=== PATIENT | female | born 1945 | race Caucasian/White ===

== ENCOUNTER → 2016-06-30 | Outpatient (REF) | payer MEDICARE ==
[~2016-06-30] MED LIST: /PANT40TA OR; /SUCR1TA OR; /VERA40TA OR; ACET65TA OR; COUM2.5T11 PO; MAXA10TA14 PO; PERC5TAB6 PO; PRAV40TA OR; PROT1TAB2 PO; SENO8.6T2 PO; TYLE325T5 PO
== END ==
LOC: M LAB REF 13:22
PROVIDERS: ATTEND Nurse Practitioner Family
DX: B35.3 Tinea pedis (principal)

== ENCOUNTER → 2016-07-01 | Outpatient (REF) | payer MEDICARE ==
[2016-07-01 18:39] LABS: VITAMIN B12 LEVEL 235 PG/ML
[2016-07-01 18:40] LABS: FOLATE 6.5 NG/ML
== END ==
LOC: M LAB REF 16:41
PROVIDERS: ATTEND Internal Medicine
DX: Z01.89 Encounter for other specified special examinations (principal); G60.9 Hereditary and idiopathic neuropathy, unspecified

== ENCOUNTER → 2017-01-05 | Outpatient (CLI) | payer MEDICARE ==
[~2017-01-05] MED LIST changes: -COUM2.5T11 PO; +COUM2.5T17 PO; +PERC5TAB12 PO; -PERC5TAB6 PO; -SENO8.6T2 PO; +SENO8.6T5 PO
--- NOTE | 2017-01-05 15:08 | REPMRS ---
Patient History The patient states she has not had a clinical breast exam in over a year. Patient is postmenopausal. Family history of endometrial cancer in daughter. Digital Woman Screen Mammo: January 05, 2017 - Exam #: [id number] Bilateral CC and MLO view(s) were taken. Technologist: Joycelyn Grover, Technologist Prior study comparison: January 10, 2016, digital woman screen mammo performed at [facility]. January 09, 2015, digital woman screen mammo performed at [facility]. FINDINGS: There are scattered fibroglandular densities. There has been no change in the appearance of the mammogram from the prior studies. There is a mild amount of residual fibroglandular tissue which is fairly symmetric. There is no interval development of dominant mass, architectural distortion, or clustered microcalcification suggestive of malignancy. ASSESSMENT: BI-RADS/ACR category 1 mammogram. Negative. Recommendation Routine screening mammogram in 1 year (for women over age 40). This mammogram was interpreted with the aid of an FDA-approved computer-aided dectection system. Electronically Signed By: Loki Deutsch MD 01/05/17 [id number]
--- NOTE | 2017-01-07 09:38 | DEXA ---
AP SPINE L1 - L4 1.139 -0.4 1.2 LT FEMUR TOTAL Left hip replacement. RT FEMUR TOTAL 0.729 -2.2 -0.7 TOTAL BODY TOTAL OTHER DUAL FEMUR FRAX* ASSESSMENT Risk factors: Premature menopause. 10 year probability of fracture Major osteoporotic fracture 12.2 % Hip fracture 2.8 % COMMENTS: Normal bone densitometry of the spine. There is low bone density of the right hip. The increased density of the spine does not represent a significant change. The decreased density of the right hip does represent a significant change. The density of the spine is increased 1.9% since the initial exam on 10/20/2006. The spine density has increased 1.1% since the most recent exam on 01/09/2015. Hip replacement. The density of the right hip has decreased 9.4% since the initial exam on 2006. The density of the right hip has decreased 3.7% since the most recent exam on . FOLLOW-UP: Recommendation for the next bone density exam: 2 years. MAIRA
== END ==
LOC: M WHC 14:00
PROVIDERS: ATTEND Internal Medicine
DX: M81.0 Age-related osteoporosis without current pathological fracture (principal); M85.80 Other specified disorders of bone density and structure, unspecified site; Z12.31 Encounter for screening mammogram for malignant neoplasm of breast
CPT/HCPCS: 77080; G0202

== ENCOUNTER → 2017-07-07 | Outpatient (REF) | payer MEDICARE ==
[2017-07-07 20:49] LABS: FOLATE 7.8 NG/ML; VITAMIN B12 LEVEL 250 PG/ML
== END ==
LOC: M LAB REF 17:50
DX: G60.9 Hereditary and idiopathic neuropathy, unspecified (principal)
CPT/HCPCS: 82746

== ENCOUNTER → 2018-01-05 | Outpatient (CLI) | payer MEDICARE | LOC: M WHC 14:23 | DX: Z12.31 Encounter for screening mammogram for malignant neoplasm of breast (principal) | CPT/HCPCS: 77067 ==

== ENCOUNTER → 2019-02-24 | Outpatient (CLI) | payer MEDICARE ==
[~2019-02-24] MED LIST changes: -/PANT40TA OR; -/SUCR1TA OR; -/VERA40TA OR; +PROT1TAB2 OR; +SUCR1TAB56 OR; +VERA1TAB23 OR
--- NOTE | 2019-02-24 14:12 | REPMRS ---
Patient History The patient states she has not had a clinical breast exam in over a year. Patient is postmenopausal and has history of squamous cell skin cancer at age 60. Family history of endometrial cancer in daughter. No Hormone Replacement Therapy 3D TOMOSYNTHESIS WAS PERFORMED. [facility] lifetime risk for breast cancer is 2.5%. Digital Woman Screen Mammo: February 24, 2019 - Exam #: [id number] Bilateral CC and MLO view(s) were taken. Technologist: Joycelyn Grover, Technologist Prior study comparison: January 05, 2018, bilateral digital woman screen mammo performed at [facility]. January 05, 2017, digital woman screen mammo performed at [facility]. FINDINGS: The breast tissue is heterogeneously dense. This may lower the sensitivity of mammography. There has been no change in the appearance of the mammogram from the prior studies. There is a moderate amount of residual fibroglandular tissue which is fairly symmetric. There is no interval development of dominant mass, areas of architectural distortion, or clustered microcalcification typical of malignancy. Assessment: BI-RADS/ACR category 1 mammogram. Negative Mammogram. Recommendation Routine screening mammogram in 1 year (for women over age 40). This mammogram was interpreted with the aid of an FDA-approved computer-aided dectection system. Electronically Signed By: Loki Deutsch MD 02/24/19 [id number]
--- NOTE | 2019-02-28 14:24 | DEXA ---
AP SPINE L1 - L4 1.140 -0.4 1.3 LT FEMUR TOTAL Left hip replacement. LT NECK Left hip replacement. RT FEMUR TOTAL 0.751 -2.0 -0.4 RT NECK 0.715 -2.3 -0.5 TOTAL BODY TOTAL OTHER COMMENTS: Normal bone densitometry of the spine. There is low bone density of the right hip. The increased density of the spine does not represent a significant change. The increased density of the right hip does represent a significant change. The density of the spine has increased 2.0% since the initial exam on 10/20/2006. The spine density has increased 0.1% since the most recent exam on 01/05/2017. Left hip replacement. The density of the right hip has decreased 6.7% since the initial exam on 10/20/2006. The density of the right hip has increased 3.0% since most recent exam on 01/05/2017. FOLLOW-UP: Recommendation for the next bone density exam: 2 years. MAIRA
== END ==
LOC: M WHC 12:59
PROVIDERS: ATTEND Internal Medicine
DX: Z12.31 Encounter for screening mammogram for malignant neoplasm of breast (principal); M81.0 Age-related osteoporosis without current pathological fracture; Z80.49 Family history of malignant neoplasm of other genital organs; Z85.828 Personal history of other malignant neoplasm of skin; M85.851 Other specified disorders of bone density and structure, right thigh; Z96.642 Presence of left artificial hip joint

== ENCOUNTER → 2019-03-17 | Outpatient (CLI) | payer MEDICARE ==
[~2019-03-17] MED LIST changes: +CONRAY-43 43% 50ML VIAL (Q9960) As Ordered ONE; +LIDOCAINE 1% MDV 20ML VIAL As Ordered ONE; +methylPREDNISolone 80MG/ML SUSP 1ML VIAL (J1040) As Ordered ONE
--- NOTE | 2019-03-20 14:54 | REP ---
RIGHT HIP INJECTION The procedure was performed under the direct supervision of Dr. Deutsch. The benefits and risks including but not limited to pain infection bleeding and anaphylaxis were explained to the patient and informed consent was obtained. The right femoral neck was localized using fluoroscopic guidance. The skin was prepped and draped in a sterile fashion. 1% lidocaine was used as a local anesthetic. Using fluoroscopic guidance a 22-gauge spinal needle was inserted and advanced to the femoral neck. 0.5 ml of Conray 43 was injected to verify placement. 5 ml of a solution containing 4 ml of 1% lidocaine and 1 ml of Depo-Medrol 40 mg injected. The needle was then removed. The patient tolerated the procedure well and there were no immediate complications. Less than 6 seconds of fluoroscopy time was utilized for this procedure. Electronically Signed by EMANUEL Villavicencio 03/17/2019 03:38 P Electronically Signed by Loki Deutsch MD 03/20/2019 02:45 P
== END ==
LOC: M RADPRO 11:59
PROVIDERS: ATTEND Physician Assistant Surgical
DX: M25.551 Pain in right hip (principal)
CPT/HCPCS: 20610; 77002; J1040; Q9960

== ENCOUNTER → 2021-02-19 | Outpatient (CLI) | payer MEDICARE ==
[~2021-02-19] MED LIST changes: -CONRAY-43 43% 50ML VIAL (Q9960) As Ordered ONE; -LIDOCAINE 1% MDV 20ML VIAL As Ordered ONE; -methylPREDNISolone 80MG/ML SUSP 1ML VIAL (J1040) As Ordered ONE
--- NOTE | 2021-02-20 07:31 | REPMRS ---
Patient History The patient states she has not had a clinical breast exam in over a year. Family history of endometrial cancer in daughter. No Hormone Replacement Therapy Modern vaccine 07/25/20 left arm. 08/22/20 left arm. Patient states no breast complaints today. Patient has signed MRS History Sheet. Digital Woman Screen Mammo: February 19, 2021 - Exam #: [id number] Bilateral CC and MLO view(s) were taken. Technologist: RT Arun Prior study comparison: February 24, 2019, bilateral digital woman screen mammo performed at [facility]. January 05, 2018, bilateral digital woman screen mammo performed at [facility]. FINDINGS: There are scattered fibroglandular densities. Screening. Digital screening (2D) mammography was performed bilaterally in the CC and MLO projections. Additionally, breast tomosynthesis (3D mammography) was performed bilaterally in the CC and MLO projections. Todays exam was compared to the prior exam/exams. By history, the patient has no complaints of a palpable breast abnormality or other significant breast complaints. The breasts are unchanged in size and shape. There are no candice-soft tissue densities or spiculated masses. There is no internal architectural distortion. Once again, stable benign appearing calcifications are seen.There are no suspicious candice-calcific clusters. Skin thickening or nipple retraction is not present. IMPRESSION: BI-RADS Category 2- Benign Findings. There is no evidence of malignant alteration of the breasts. Followup examination recommended in one year. The Volpara volumetric breast density category is B, there are scattered areas of fibroglandular densities. This mammogram was read with the assistance of [facility] Compass,an FDA approved computer aided detection system for mammography. The lifetime Tyrer-Cuzick score is 2.1 % Negative x-ray reports should not delay surgical consultation if a dominant or clinically suspicious mass is present. Not all breast cancers can be identified by mammography. Therefore, we recommend that you continue to perform regular breast self-examination and physical examination and then promptly contact your physician of any concerns or changes. Adenosis and dense breasts may obscure an underlying neoplasm. Assessment: BI-RADS/ACR category 2 mammogram. Benign Findings. Recommendation Routine screening mammogram of both breasts in 1 year. Electronically Signed By: Caleb Ochoa DO 02/19/21 [id number]
== END ==
LOC: M WHC 15:20
PROVIDERS: ATTEND Internal Medicine
DX: Z12.31 Encounter for screening mammogram for malignant neoplasm of breast (principal)

== ENCOUNTER → 2021-04-09 | Outpatient (CLI) | payer MEDICARE ==
[~2021-04-09] MED LIST changes: +FAMC250T; +LEVO25TA5; +PRAV40TA2; +VERA40TA; +ZOLP5TAB
== END ==
LOC: M LABSMTC 09:16
PROVIDERS: ATTEND Anesthesiology
DX: Z01.812 Encounter for preprocedural laboratory examination (principal); Z20.822 Contact with and (suspected) exposure to COVID-19

== ENCOUNTER 2021-04-14 06:47 | Day surgery (SDC) | payer MEDICARE ==
[~2021-04-14] VITALS: Ht 165.1 cm; Wt 60.3 kg
[~2021-04-14 06:47] MED LIST changes: +NS 1,000 ML IV ONE
--- OUTSIDE RECORDS SUMMARY | 2021-04-14 06:51 | CCD | Continuity of Care Document ---
Author Author Susannah GRIMES Organization Unknown Address [address] [place] [address] Phone [phone] Care Team Providers Care Processing Technologist Name Role Phone Joshua Finley M.D. AUTM [phone] Problems Description No Information Available Social History Type Date Description Comments Sex Unknown Tobacco Use Start: Unknown End: Unknown Former Cigarette Smo ker Quit 1988 ETOH Use Social Drinker Tobacco Use Start: Unknown End: Unknown Patient is a former smoker quit smoking in 1988 Sun Exposure moderate amount of sun exposure Sun Exposure Has experienced blistering from sunburns Sun Exposure Uses 15-30 SPF Sun Exposure Has never used tanning bed Allergies, Adverse Reactions, Alerts Active Allergies Reaction Severity Comments Date Topamax 06/27/2015 Medications Active Medications SIG Qnty Indications Ordering Provide r Date Cephalexin 500mg Capsules 1 by mouth twice a day x 7 days 14caps L08.9 ANGELIA Ferrer 2020 Urea 40% Cream a pply to the feet every day 198gm L85.3 ANGELIA Dawn 06/14 Pravastatin Sodium Unknown Verapamil HCL Unknown Maxalt Unknown Omeprazole Unknown Calcium 600 + D Unknown 0 Vitamin D3 Unknown Levothyroxine Sodium Unknown Famciclovir Unknown Immunizations Description No Information Available Vital Signs Date Vital Result Comment 01/21/2021 3:07pm BP Systolic 126 mmHg BP Diastolic 72 mmHg Weight 131.00 lb Height 65 inches 5'5" BMI (Body Mass Index) 21.8 kg/m2 12/17/2020 10:18am BP Systolic 118 mmHg BP Diastolic 66 mmHg Weight 135.00 lb Respiratory Rate 18 /min Results Test Acquired Date Facility Test Result H/L Range Note Laboratory test finding 01/21/2021 [facility] Anaerobic Culture <pending> [facility] 12/17/2020 [facility] LC Icd9 Code ICD9 Code: C44.7 <SEE NOTE> 1, 2 PDFReport SEE IMAGE [address] Gonzalez for exc ision/Mohs letter awaiting signature LW 01/23/21 2 ICD9 Code: C44.722 Protocol: shave Clinical Text: SCC VS KA Final Diagnosis: KERATOACANTHOMA (SQUAMOUS CELL CARCINOMA, KERATOACANTHOMA TYPE), EXTENDING TO THE BOTTOM OF THE SECTIONS. Gross Text: The specimen grossly was irregular in shape and measured 12 x 10 mm. on the surface and 3 mm. deep. It was divided into 2 sections on the long axis. All of the tissue was submitted for processing. Microscopic Description: Markedly thickened horn invaginates the epithelium, which is papillomatous and acanthotic, with a number of pale-staining cells and disruption of maturation, and the lesion extends to the bottom of the sections. CPT: 13116*1 Procedures Date Code Description Status 01/21/2021 22624 Office/Outpatient Established Mo d MDM 30-39 Min Completed 12/17/2020 95874 Office/Outpatient Established Mo d MDM 30-39 Min Completed 12/17/2020 80053 Shave Biopsy Of Skin, Single Les ion Completed Medical Devices Description No Information Available Encounters Type Date Location Provider Dx Diagnosis Office Visit 01/21/2021 2:45p Main Office ANGELIA Ferrer C44.722 Squamous cell carcinoma skin/ right lower limb, inc hip L08.9 Local infection of the skin and subcutaneous tissue, unsp Office Visit 12/17/2020 10:30a Main Office MACHO Whitten D48. 5 Neoplasm of uncertain behavior of skin L82.1 Other seborrheic keratosis D18.01 Hemangioma of skin and subcu taneous tissue Z85.828 Personal history of other ma lignant neoplasm of skin Z08 Encntr for follow-up exam af ter trtmt for malignant neoplasm Assessments Date Code Description Provider 01/21/2021 C44.722 Squamous cell carcin nelly of skin of right lower limb, including hip ANGELIA Ferrer 01/21/2021 L08.9 Local infection of t he skin and subcutaneous tissue, unspecified ANGELIA Ferrer 12/17/2020 D48.5 Neoplasm of uncertain behavior o f skin MACHO Whitten 12/17/2020 L82.1 Other seborrheic keratosis MACHO Whitten 12/17/2020 D18.01 Hemangioma of skin and subcutane ous tissue MACHO Whitten 12/17/2020 Z85.828 Personal history of other malign ant neoplasm of skin MACHO Whitten 12/17/2020 Z08 Encounter for follow-up examinat ion after completed treatmen MACHO Whitten Plan of Treatment Future Appointment(s):* 07/07/2021 12:30 pm - ANGELIA Schaefer at Main Office * 12/17/2021 9:45 am - ANGELIA Schaefer at Main Office 01/21/2021 - ANGELIA Ferrer* C44.722 Squamous cell carcinoma of skin of right lower limb, including hip* Comments:* Discussed treatment.Start Cephalexin 500 mg BID x 7 days.Start Mupirocin cream ( that already has at home) BID x 7 days.Culture taken today.Will call when results are back.Call with problems. * L08.9 Local infection of the skin and subcutaneous tissue, unspecified* New Medication:* Cephalexin 500 mg - 1 by mouth twice a day x 7 days * Comments:* See above. * Follow up:* 6 month - [facility] Functional Status Description No Information Available Mental Status Description No Information Available Referrals Description No Information Available
--- OUTSIDE RECORDS SUMMARY | 2021-04-14 06:51 | CCD ---
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 Ac tive confirmed 215439665 Problem Squamous cell carcinoma of skin of right lower l imb, including hip C44.722 Active confirmed [id number] ALLERGIES Allergen (clinical drug ingredient) Drug/Non Drug Allergy do cumented on EMR Reaction Allergy Type Onset Date Status Topamax 100 rash,h/a Drug Allergy Active ENCOUNTERS from 1945 to 2021-04-09 Encounter Location Date Provider Diagnosis [facility] Dermatology [address] [facility] [phone] [place] [address] Mar, Tong Gonzalez Squamous cell carcinoma of r ight lower leg C44.722 IMMUNIZATIONS No Information SOCIAL HISTORY Tobacco Use: Social History Observation Description Date Details (start date - stop date) Never Smoker Sex Assigned At : Social History Observation Description Sex Assigned At Unknown Tobacco Use: Question Answer Notes Are you a: never smoker REASON FOR REFERRAL No Information VITAL SIGNS Weight 133.6 lbs Mar, Weight-kg 60.6 kg Mar, Height 64 1/2 in Mar, BMI 22.58 kg/m2 Mar, Blood pressure systolic 130 mm Hg Mar, Blood pressure diastolic 70 mm Hg Mar, MEDICATIONS Medication SIG (Take, Route, Frequency, Duration) Notes Start Da te End Date Status Maxalt 10 MG 1 Orally prn h/a Active Calcium 600 + D 600-400 MG-UNIT 1 tablet Orally Once a day for 30 day (s) Active Flax Seed Oil 1000 MG 1 Orally daily Not-Taking Pantoprazole Sodium 40 MG 1 Orally daily Active Famciclovir 250 MG 1 tablet Orally Twice a day for 10 day(s) Active Fish Oil 1000 MG 1 Orally daily Not- Taking Verapamil HCl 40 mg 1 tablet Orally daily for 30 day(s) Active Multivitamins 1 Orally daily Active Levothyroxine Sodium 25 MCG 1 tablet in the morning on an empty stomach Orally Once a day for 30 day(s) Active Pravachol 40 40mg 1 daily Active PROCEDURES from 1945 to 2021-04-09 Procedure Date Ordered Result Body Site Med: Derm Lidocaine with Epinephrine Inj ection 1% with 2 ml sodium bicarbonate Intradermally to marked areas 2021-04-04 N/A RESULTS No Results REASON FOR VISIT SCC, R posterior leg MEDICAL (GENERAL) HISTORY Type Description Date Medical History hyperlipidemia Medical History migraine headache Medical History irregular heart beat/mitral valve prolap se Medical History hemorrhoids Medical History fracture---right foot/heel and 2 toes Medical History insomnia Medical History osteopenia Medical History peptic ulcer 05/23 Medical History neuroma of foot-sheyla. Medical History constipation,2011-seeing sabra tyler and has a referral for colonoscopy pending Medical History HSV buttock Surgical History chin lift 1998 Surgical History colonoscopy 2003, pending 04/25 Surgical History endoscopy x 2 2009 Goals Section No Information Health Concerns No Information MEDICAL EQUIPMENT No Information MENTAL STATUS No Information FUNCTIONAL STATUS No Information ASSESSMENTS Encounter Date Diagnosis Assessment Notes Treatment Notes Treatm ent Clinical Notes Mar, Squamous cell carcinoma of right lower leg (ICD- 10 - C44.722) [place] protocol was followed in compliance with [facility] standards. Mohs Micrographic Surgeon operated in two distinct and integrated capacities as the surgeon and the pathologist. The areas was prepped with chlorhexidine. The tumor was visualized, compared against relevant records, and confirmed with the patient. The agreed upon area anesthetized with lidocaine 1% with epinephrine. Once anesthetized, the area was lightly curetted with a 3mm curette to better define tumor size. A 2mm rim of normal tissue was marked and an incision at a 45 degree angle following standard Mohs approach was performed and the specimen harvested as a microscopic controlled layer. Hemostasis was achieved with electrocautery. Estimated blood loss was 5mL.The specimen was oriented, chromacoded, mapped, and placed in 1 block. Each section was processed in the Mohs Laboratory using Mohs protocol and submitted for frozen section. Please see scanned Mohs map for appropriate use criteria score greater than or equal to 7 and pathology report. Frozen section analysis of the four quadrants showed the followin quadrants, 0 positive. Procedure: Secondary Intent Healing Petrolatum and bandage applied. Wound care instruction addressed with patient by provider or clinic staff and wound care handout given. Given the location of the defect and/or patient preference, the wound was allowed to heal by secondary intent. Plan for recheck of the surgical site in 4 weeks and 10 weeks. Patient tolerated the procedure well and left in stable condition. Patient reports that his/her pain was well-managed. There was no noted significant difference from baseline pain score after procedure. Patient was educated to use acetaminophen 500mg up to 4 times daily. If not sufficient, patient was educated to re-present to the dermatology clinic or, if after hours, the emergency department. PLAN OF TREATMENT Treatment Notes Assessment Notes Clinical Notes Squamous cell carcinoma of right lower leg [place] protocol was followed in compliance with [facility] standards. Mohs Micrographic Surgeon operated in two distinct and integrated capacities as the surgeon and the pathologist. The areas was prepped with chlorhexidine. The tumor was visualized, compared against relevant records, and confirmed with the patient. The agreed upon area anesthetized with lidocaine 1% with epinephrine. Once anesthetized, the area was lightly curetted with a 3mm curette to better define tumor size. A 2mm rim of normal tissue was marked and an incision at a 45 degree angle following standard Mohs approach was performed and the specimen harvested as a microscopic controlled layer. Hemostasis was achieved with electrocautery. Estimated blood loss was 5mL.The specimen was oriented, chromacoded, mapped, and placed in 1 block. Each section was processed in the Mohs Laboratory using Mohs protocol and submitted for frozen section. Please see scanned Mohs map for appropriate use criteria score greater than or equal to 7 and pathology report. Frozen section analysis of the four quadrants showed the followin quadrants, 0 positive.Procedure: Secondary Intent HealingPetrolatum and bandage applied. Wound care instruction addressed with patient by provider or clinic staff and wound care handout given. Given the location of the defect and/or patient preference, the wound was allowed to heal by secondary intent. Plan for recheck of the surgical site in 4 weeks and 10 weeks.Patient tolerated the procedure well and left in stable condition. Patient reports that his/her pain was well- managed. There was no noted significant difference from baseline pain score after procedure. Patient was educated to useacetaminophen 500mg up to 4 times daily. If not sufficient, patient was educated to re-present to the dermatology clinic or, if after hours, theemergency department. Next Appt Details 6 Weeks Reason: Provider Name:Tong Gonzalez, 05-29 11:00:00 AM, [address] [place] [address], [place], [place], [facility] [phone] Insurance Providers Payer Name Payer Address Payer Phone Insured Name Patient Relati onship to Insured Coverage Start Date Coverage End Date MEDICARE Part A and B [address] [facility] [id number] [employer] [facility] OPTIONS [facility] [address] [facility] [phone] CHAD [place]ENO
--- OUTSIDE RECORDS SUMMARY | 2021-04-14 06:51 | CCD ---
Author Author [facility] Organization [facility] Address Unknown Phone Unavailable Care Team Providers Care Used Car Manager Name Role Phone Chace Marin MD Unavailable Unavailable Chace Marin MD Unavailable Unavailable Chace Marin MD Unavailable Unavailable Chace Marin MD Unavailable Unavailable Chace Marin MD Unavailable Unavailable Chace Marin MD Unavailable Unavailable Chace Marin MD Unavailable Unavailable Chace Marin MD Unavailable Unavailable Chace Marin MD Unavailable Unavailable Chace Marin MD Unavailable Unavailable Chace Marin MD Unavailable Unavailable Chace Marin MD Unavailable Unavailable Chace Marin MD Unavailable Unavailable Chace Marin MD Unavailable Unavailable Chace Marin MD Unavailable Unavailable Chace Marin MD Unavailable Unavailable Chace Marin MD Unavailable Unavailable Chace Marin MD Unavailable Unavailable Chace Marin MD Unavailable Unavailable Chace Marin MD Unavailable Unavailable Chace Marin MD Unavailable Unavailable Chace Marin MD Unavailable Unavailable Chace Marin MD Unavailable Unavailable Chace Marin MD Unavailable Unavailable Chace Marin MD Unavailable Unavailable Chace Marin MD Unavailable Unavailable Chace Marin MD Unavailable Unavailable Chace Marin MD Unavailable Unavailable Chace Marin MD Unavailable Unavailable Chace Marin MD Unavailable Unavailable Chace Marin MD Unavailable Unavailable Chace Marin MD Unavailable Unavailable Chace Marin MD Unavailable Unavailable Chace Marin MD Unavailable Unavailable Chace Marin MD Unavailable Unavailable Chace Marin MD Unavailable Unavailable Chace Marin MD Unavailable Unavailable Chace Marin MD Unavailable Unavailable Chace Marin MD Unavailable Unavailable Chace Mairn MD Unavailable Unavailable Chace Marin MD Unavailable Unavailable Chace Marin MD Unavailable Unavailable Chace Marin MD Unavailable Unavailable Chace Marin MD Unavailable Unavailable Chace Marin MD Unavailable Unavailable Chace Marin MD Unavailable Unavailable Chace Marin MD Unavailable Unavailable Chace Marin MD Unavailable Unavailable Chace Marin MD Unavailable Unavailable Chace Marin MD Unavailable Unavailable PICKERAL JR, J ELIO PA-C Unavailable Unavailable PICKERAL JR, J ELIO PA-C Unavailable Unavailable PICKERAL JR, J ELIO PA-C Unavailable Unavailable PICKERAL JR, J ELIO PA-C Unavailable Unavailable PICKERAL JR, J ELIO PA-C Unavailable Unavailable PICKERAL JR, J ELIO PA-C Unavailable Unavailable PICKERAL JR, J ELIO PA-C Unavailable Unavailable PICKERAL JR, J ELIO PA-C Unavailable Unavailable PICKERAL JR, J ELIO PA-C Unavailable Unavailable PICKERAL JR, J ELIO PA-C Unavailable Unavailable PICKERAL JR, J ELIO PA-C Unavailable Unavailable PICKERAL JR, J ELIO PA-C Unavailable Unavailable PICKERAL JR, J ELIO PA-C Unavailable Unavailable PICKERAL JR, J ELIO PA-C Unavailable Unavailable PICKERAL JR, J ELIO PA-C Unavailable Unavailable PICKERAL JR, J ELIO PA-C Unavailable Unavailable PICKERAL JR, J ELIO PA-C Unavailable Unavailable PICKERAL JR, J ELIO PA-C Unavailable Unavailable PICKERAL JR, J ELIO PA-C Unavailable Unavailable PICKERAL JR, J ELIO PA-C Unavailable Unavailable PICKERAL JR, J ELIO PA-C Unavailable Unavailable PICKERAL JR, J ELIO PA-C Unavailable Unavailable PICKERAL JR, J ELIO PA-C Unavailable Unavailable PICKERAL JR, J ELIO PA-C Unavailable Unavailable PICKERAL JR, J ELIO PA-C Unavailable Unavailable PICKERAL JR, J ELIO PA-C Unavailable Unavailable PICKERAL JR, J ELIO PA-C Unavailable Unavailable Max Finley MD Unavailable Unavailable Max Finley MD Unavailable Unavailable Max Finley MD Unavailable Unavailable Max Finley MD Unavailable Unavailable Max Finley MD Unavailable Unavailable Max Finley MD Unavailable Unavailable Max Finley MD Unavailable Unavailable Max Finley MD Unavailable Unavailable Max Finley MD Unavailable Unavailable Max Finley MD Unavailable Unavailable TusharMax MD Unavailable Unavailable HugginsMax MD Unavailable Unavailable HugginsMax MD Unavailable Unavailable TusharMax MD Unavailable Unavailable TusharMax MD Unavailable Unavailable HugginsMax MD Unavailable Unavailable TusharMax MD Unavailable Unavailable TusharMax MD Unavailable Unavailable HugginsMax MD Unavailable Unavailable TusharMax MD Unavailable Unavailable HugginsMax MD Unavailable Unavailable TusharMax MD Unavailable Unavailable HugginsMax MD Unavailable Unavailable TusharMax MD Unavailable Unavailable HugginsMax MD Unavailable Unavailable HugginsMax MD Unavailable Unavailable HugginsMax MD Unavailable Unavailable HugginsMax MD Unavailable Unavailable HugginsMax MD Unavailable Unavailable HugginsMax MD Unavailable Unavailable HugginsMax MD Unavailable Unavailable HugginsMax MD Unavailable Unavailable TusharMax MD Unavailable Unavailable HugginsMax MD Unavailable Unavailable HugginsMax MD Unavailable Unavailable TusharMax MD Unavailable Unavailable HugginsMax MD Unavailable Unavailable TusharMax MD Unavailable Unavailable HugginsMax MD Unavailable Unavailable HugginsMax MD Unavailable Unavailable TusharMax MD Unavailable Unavailable TusharMax MD Unavailable Unavailable HugginsMax MD Unavailable Unavailable TusharMax MD Unavailable Unavailable HugginsMax reese MD Unavailable Unavailable TusharMax reese MD Unavailable Unavailable TusharMax MD Unavailable Unavailable TusharMax MD Unavailable Unavailable HugginsMax reese MD Unavailable Unavailable HugginsMax MD Unavailable Unavailable TusharMax reese MD Unavailable Unavailable TusharMax reese MD Unavailable Unavailable TusharMax reese MD Unavailable Unavailable TusharMax MD Unavailable Unavailable HugginsMax MD Unavailable Unavailable HugginsMax MD Unavailable Unavailable TusharMax MD Unavailable Unavailable TusharMax MD Unavailable Unavailable TusharMax MD Unavailable Unavailable HugginsMax MD Unavailable Unavailable TusharMax MD Unavailable Unavailable TusharMax MD Unavailable Unavailable HugginsMax MD Unavailable Unavailable TusharMax MD Unavailable Unavailable TusharMax MD Unavailable Unavailable Tushar, Max Lewis MD Unavailable Unavailable Tuhsar, Max Lewis MD Unavailable Unavailable Tushar, Max Lewis MD Unavailable Unavailable Huggins, F Joshua MD Unavailable Unavailable Tushar, Max Lewis MD Unavailable Unavailable Huggins, Max Lewis MD Unavailable Unavailable Huggins, Max Lewis MD Unavailable Unavailable Huggins, Max Lewis MD Unavailable Unavailable Tushar, Max Lewis MD Unavailable Unavailable Tushar, F Joshua MD Unavailable Unavailable Huggins, Max Lewis MD Unavailable Unavailable Huggins, Max Lewis MD Unavailable Unavailable Tushar, Max Joshua MD Unavailable Unavailable Huggins, Max Lewis MD Unavailable Unavailable Tushar, Max Joshua MD Unavailable Unavailable Tushar, Max Joshua MD Unavailable Unavailable Tushar, F Joshua MD Unavailable Unavailable Tushar, F Joshua MD Unavailable Unavailable Huggins, F Joshua MD Unavailable Unavailable Huggins, Max Joshua MD Unavailable Unavailable Tushar, Max Lewis MD Unavailable Unavailable Sanchez, A Phyl SIZE ROLLER OPERATOR-BC Unavailable Unavailable Sanchez, A Phyl SIZE ROLLER OPERATOR-BC Unavailable Unavailable Sanchez, A Phyl SIZE ROLLER OPERATOR-BC Unavailable Unavailable Sanchez, A Phyl SIZE ROLLER OPERATOR-BC Unavailable Unavailable Sanchez, A Phyl SIZE ROLLER OPERATOR-BC Unavailable Unavailable Sanchez, A Phyl SIZE ROLLER OPERATOR-BC Unavailable Unavailable Sanchez, A Phyl SIZE ROLLER OPERATOR-BC Unavailable Unavailable Sanchez, A Phyl SIZE ROLLER OPERATOR-BC Unavailable Unavailable Sanchez, A Phyl SIZE ROLLER OPERATOR-BC Unavailable Unavailable Sanchez, A Phyl SIZE ROLLER OPERATOR-BC Unavailable Unavailable Sanchez, A Phyl SIZE ROLLER OPERATOR-BC Unavailable Unavailable Sanchez, A Phyl SIZE ROLLER OPERATOR-BC Unavailable Unavailable Sanchez, A Phyl SIZE ROLLER OPERATOR-BC Unavailable Unavailable Sanchez, A Phyl SIZE ROLLER OPERATOR-BC Unavailable Unavailable Sanchez, A Phyl SIZE ROLLER OPERATOR-BC Unavailable Unavailable Sanchez, A Phyl SIZE ROLLER OPERATOR-BC Unavailable Unavailable Sanchez, A Phyl SIZE ROLLER OPERATOR-BC Unavailable Unavailable Sanchez, A Phyl SIZE ROLLER OPERATOR-BC Unavailable Unavailable Sanchez, A Phyl SIZE ROLLER OPERATOR-BC Unavailable Unavailable Sanchez, A Phyl SIZE ROLLER OPERATOR-BC Unavailable Unavailable Sanchez, A Phyl SIZE ROLLER OPERATOR-BC Unavailable Unavailable Sanchez, A Phyl SIZE ROLLER OPERATOR-BC Unavailable Unavailable Sanchez, A Phyl SIZE ROLLER OPERATOR-BC Unavailable Unavailable Sanchez, A Phyl SIZE ROLLER OPERATOR-BC Unavailable Unavailable Sanchze, A Phyl SIZE ROLLER OPERATOR-BC Unavailable Unavailable Sanchez, A Phyl SIZE ROLLER OPERATOR-BC Unavailable Unavailable Sanchez, A Phyl SIZE ROLLER OPERATOR-BC Unavailable Unavailable Sanchez, A Phyl SIZE ROLLER OPERATOR-BC Unavailable Unavailable Sanchez, A Phyl SIZE ROLLER OPERATOR-BC Unavailable Unavailable Sanchez, A Phyl SIZE ROLLER OPERATOR-BC Unavailable Unavailable Sanchez, A Phyl SIZE ROLLER OPERATOR-BC Unavailable Unavailable Sanchez, A Phyl SIZE ROLLER OPERATOR-BC Unavailable Unavailable Hegard, Meka SIZE ROLLER OPERATOR Unavailable Unavailable Hegard, Meka SIZE ROLLER OPERATOR Unavailable Unavailable Hegard, Meka SIZE ROLLER OPERATOR Unavailable Unavailable Hegard, Meka SIZE ROLLER OPERATOR Unavailable Unavailable Hegard, Meka SIZE ROLLER OPERATOR Unavailable Unavailable Hegard, Meka SIZE ROLLER OPERATOR Unavailable Unavailable Hegard, Meka SIZE ROLLER OPERATOR Unavailable Unavailable Hegard, Meka SIZE ROLLER OPERATOR Unavailable Unavailable Hegard, Meka SIZE ROLLER OPERATOR Unavailable Unavailable Hegard, Meka SIZE ROLLER OPERATOR Unavailable Unavailable Hegard, Meka SIZE ROLLER OPERATOR Unavailable Unavailable Hegard, Meka SIZE ROLLER OPERATOR Unavailable Unavailable Hegard, Meka SIZE ROLLER OPERATOR Unavailable Unavailable Hegard, Meka SIZE ROLLER OPERATOR Unavailable Unavailable Hegard, Meka SIZE ROLLER OPERATOR Unavailable Unavailable Hegard, Meka SIZE ROLLER OPERATOR Unavailable Unavailable Hegard, Meka SIZE ROLLER OPERATOR Unavailable Unavailable Re-disclosure Warning The records that you are about to access may contain information from federally-assisted alcohol or drug abuse programs. If such information is present, then the following federally mandated warning applies: This information has been disclosed to you from records protected by federal confidentiality rules (42 CFR part 2). The federal rules prohibit you from making any further disclosure of this information unless further disclosure is expressly permitted by the written consent of the person to whom it pertains or as otherwise permitted by 42 CFR part 2. A general authorization for the release of medical or other information is NOT sufficient for this purpose. The Federal rules restrict any use of the information to criminally investigate or prosecute any alcohol or drug abuse patient.The records that you are about to access may contain highly sensitive health information, the redisclosure of which is protected by Article 27-F of the [facility] Public Health law. If you continue you may have access to information: Regarding HIV / AIDS; Provided by facilities licensed or operated by the [facility] Office of Mental Health; or Provided by the [facility] Office for People With Developmental Disabilities. If such information is present, then the following [facility] mandated warning applies: This information has been disclosed to you from confidential records which are protected by state law. State law prohibits you from making any further disclosure of this information without the specific written consent of the person to whom it pertains, or as otherwise permitted by law. Any unauthorized further disclosure in violation of state law may result in a fine or intermediate sentence or both. A general authorization for the release of medical or other information is NOT sufficient authorization for further disc losure. Encounters Encounter Providers Location Date Indications Data Source(s ) (MMS 1) [facility] [address] [facility] [address] 04/04/2021 12:00:00 AM EDT eCW1 ([facility]) Outpatient Attender: Emmanuel Marin MD Main Office 02/13/2021 03:45:00 PM EDT [facility] ([facility]) Outpatient Attender: Meka Reece [facility] Main Office 0 02/04/2021 10:30:00 AM EDT [facility] ([facility]) Outpatient Attender: Meka Reece [facility] Main Office 0 01/21/2021 02:45:00 PM EDT [facility] ([facility]) Outpatient Attender: Derrell Sanchez [facility] Main Office 0 12/17/2020 10:30:00 AM EDT [facility] ([facility]) Outpatient Attender: Joshua Garner 0 11/13/2020 03:00:00 PM EDT [facility] ([facility] ) Outpatient Attender: ELIO Garner 0 09/25/2020 02:40:00 PM EDT [facility] ([facility] ) Immunizations Vaccine Date Status Description Data Source(s) COVID-19 VACCINE Moderna 04/10/2021 12:00:00 AM EDT completed [facility] Vaccine Series Complete: YESThis Data wa s Submitted to [facility] Via [employer]. COVID-19 VACCINE Moderna 08/22/2020 12:00:00 AM EST completed [facility] Vaccine Series Complete: YESThis Data wa s Submitted to [facility] Via [employer]. COVID-19 VACCINE Moderna 07/25/2020 12:00:00 AM EST completed [facility] Vaccine Series Complete: NOThis Data was Submitted to [facility] Via [employer]. Medications Medication Brand Name Start Date Product Form Dose Route Admi nistrative Instructions Pharmacy Instructions Status Indications Reaction Description Data Source(s) Cephalexin 500 MG Oral Capsule Cephalexin 01/21/2021 12:00:00 AM EDT ORAL active [facility] ([facility]) Zolpidem tartrate 5 MG Oral Tablet Zolpidem Tartrate 11/13/2020 12:00:00 AM EDT ORAL active MED[facility] ( [facility]) Insurance Providers Payer name Policy type / Coverage type Policy ID Covered green party ID Covered green party's relationship to sung Policy Sung Plan Information [facility] Health Maintenance Organization (HMO) Usb[employer] [id number] Family Dependent Usbpi [facility] Health Maintenance Organization (HMO) [id number] Family Dependent [id number] Medicare Natl Govt Servic Medicare Primary [id number] Self Medicare Natl Govt Servic Medicare Primary [id number] Self [id number] Medicare C [id number] SELF [id number] A Medicare C [id number] SELF [id number] [id number] Medicare Natl Govt Servic Medicare Primary [id number] Self [id number] Medicare Natl Govt Servic Medicare Primary [id number] Self [id number] DME Jurisdiction A [facility] C [id number] SELF [id number] [facility] Opt [facility] Part B [id number] 12 [id number] Self [id number] [facility] Supplemental F [id number] SELF [id number] [employer] OPTIONS [id number] SP [id number] [facility] AARP Supplemental F [id number] SELF [id number] [facility] Opt Medigap Part B [id number] 12 [id number] Self [id number] [facility] Opt Medigap Part B [id number] 12 [id number] Self [id number] [facility] Opt Medigap Part B Plan F [id number] Self Plan F Medicare C [id number] SELF [id number] A DME Jurisdiction A AKIC C [id number] SELF [id number] 00 [id number] MEDICARE [id number] SP [id number] A [facility] Commercial [id number] Self [id number] [place] Medigap Part B [id number] Family Dependent [id number] [facility] Medicare Yasmin Commercial [id number] Self [id number] 00 [place] Medigap Part B [id number] Family Dependent 834 [employer] Medicare Yasmin Commercial [id number] Self [id number] [facility] HEALTH CARE OPTIONS -O/P [id number] 18 [id number] MEDICARE -O/P [id number] 18 [id number] [employer] OPTIONS [id number] SP [id number] MEDICARE [id number] SP [id number] MEDICARE COMPLETE [id number] SP [id number] MEDICARE [id number] SP [id number] Problems, Conditions, and Diagnoses Code Display Name Description Problem Type Effective Dates Data Source(s) C44.722 [id number] 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 Problem 04/04/2021 12:00:00 AM EDT eCW1 ([facility]) 105510292 Gastroesophageal reflux disease Gastroesophageal reflux disease Problem 02/13/2021 12:00:00 AM EDT [facility] ([facility] C44.722 [id number] Squamous cell carcin nelly of skin of right lower limb, including hip Problem 01/31/2021 12:00:00 AM EDT eCW1 ([facility]) C44.722 [id number] 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 01/31/2021 12:00:00 AM EDT eCW1 ([facility]) Surgeries/Procedures Procedure Description Date Indications Data Source(s) Med: Derm Lidocaine with Epinephrine Inj ection 1% with 2 ml sodium bicarbonate Intradermally to marked areas 04/04/2021 12:00:00 AM EDT eCW1 ([facility]) OFFICE OUTPATIENT NEW 30 MINUTES 02/13/2021 12:00:00 A M EDT MED[facility] ([facility]) OFFICE OUTPATIENT VISIT 25 MINUTES 02/04/2021 12:00:00 AM EDT [facility] ([facility]) OFFICE OUTPATIENT VISIT 25 MINUTES 01/21/2021 12:00:00 AM EDT [facility] ([facility]) Shave Biopsy Of Skin, Single Lesion 12/17/2020 12:00:0 0 AM EDT [facility] ([facility]) OFFICE OUTPATIENT VISIT 25 MINUTES 12/17/2020 12:00:00 AM EDT MED[facility] ([facility]) Chronic Care MGMT 20 Mins Clinical Staff Time Per Calendar M [facility] 12/04/2020 12:00:00 AM EDT [facility] ([facility] ) Chronic Care Management Services Ea Addl 20 Min 2020 12:00:00 AM EDT [facility] ([facility]) OFFICE OUTPATIENT VISIT 25 MINUTES 11/13/2020 12:00:00 AM EDT [facility] ([facility]) OFFICE OUTPATIENT VISIT 10 MINUTES 09/25/2020 12:00:00 AM EDT [facility] ([facility]) Chronic Care Management Services Ea Addl 20 Min 2020 12:00:00 AM EST [facility] ([facility]) Chronic Care MGMT 20 Mins Clinical Staff Time Per Calendar M [facility] 08/15/2020 12:00:00 AM EST [facility] ) Results ID Date Data Source [id number] 04/09/2021 09:10:00 AM EDT [facility] Name Value Range Interpretation Code Description Data Mary rce(s) Supporting Document(s) SARS-CoV-2 (COVID-19) RNA [Presence] in Respiratory specimen by ANNA with probe detection Not Detected [facility] This lab was ordered by [facility] and reported by [email or web address]. ID Date Data Source [id number] 01/21/2021 03:20:00 PM EDT [facility] ([facility]) Name Value Range Interpretation Code Description Data Mary rce(s) Supporting Document(s) Laboratory test finding (navigational concept) Laboratory test result [facility] ([facility]) ID Date Data Source [id number] 01/21/2021 03:20:00 PM EDT [facility] ([facility]) Name Value Range Interpretation Code Description Data Mary rce(s) Supporting Document(s) Bacteria identified in Unspecified specimen by Anaerob e culture Laboratory test result Abnormal (applies to non-numeric results) [facility] ([facility]) Source of Specimen: R posterior leg Laboratory test finding (navigational concept) Laboratory test r esult Abnormal (applies to non-numeric results) [facility] ([facility]) Source of Specimen: R posterior leg Aerobic bacteria have been isolated. For further identification and susceptibility testing, please contact the lab within one week. Laboratory test finding (navigational concept) Laboratory test result [facility] ([facility]) Source of Specimen: R posterior leg No anaerobic growth in 72 hours. ID Date Data Source [id number] 01/21/2021 03:20:00 PM EDT [facility] ([facility]) Name Value Range Interpretation Code Description Data Mary rce(s) Supporting Document(s) Bacteria identified in Unspecified specimen by Anaerob e culture Laboratory test result [facility]) ID Date Data Source [id number] 12/17/2020 10:39:00 AM EDT [facility] ([facility]) Name Value Range Interpretation Code Description Data Mary rce(s) Supporting Document(s) Laboratory test finding (navigational concept) Laboratory test result [facility] ([facility]) Refer to Dr. Gonzalez for excision/Mohs l danuta awaiting signature LW 01/23/21 letter sent, awaiting appt LW 01/27/21 awaiting Webmail fix to send photo LW 01/27/21 photo emailed, appt 04/02/21, pt is aware LW 02/04/21 Laboratory test finding (navigational concept) Laboratory test result [facility] ([facility]) Refer to Dr. Gonzalez for excision/Mohs l danuta awaiting signature LW 01/23/21 letter sent, awaiting appt LW 01/27/21 awaiting Webmail fix to send photo LW 01/27/21 photo emailed, appt 04/02/21, pt is aware LW 02/04/21 ID Date Data Source [id number] 12/17/2020 10:39:00 AM EDT [facility] ([facility]) Name Value Range Interpretation Code Description Data Mary rce(s) Supporting Document(s) Laboratory test finding (navigational concept) Laboratory test result [facility] ([facility]) ID Date Data Source [id number] 11/13/2020 02:59:00 PM EDT [facility] ([facility]) Name Value Range Interpretation Code Description Data Mary rce(s) Supporting Document(s) Thyrotropin [Units/volume] in Serum or Plasma by Detec tion limit <= 0.05 mIU/L 1.69 uIU/mL 0.36-3.74 [facility] ([facility] ) ID Date Data Source [id number] 11/13/2020 02:59:00 PM EDT [facility] ([facility]) Name Value Range Interpretation Code Description Data Mary rce(s) Supporting Document(s) Glucose [Mass/volume] in Serum or Plasma 96 mg/dL 74-99 [facility] ([facility]) 100-125 mg/dL PRE-DIABETES/FASTING >126 mg/dL DIABETES/FASTING Urea nitrogen [Mass/volume] in Serum or Plasma 15 mg/dL 7-18 [facility] ([facility]) Creatinine 1.0 mg/dL 0.6-1.3 [facility] Chloride [Moles/volume] in Serum or Plasma 103 meq/L 98-107 [facility] ([facility]) Potassium [Moles/volume] in Serum or Plasma 4.3 meq/L 3.5-5.1 [facility] ([facility]) Sodium [Moles/volume] in Serum or Plasma 138 meq/L 136-145 [facility] ([facility]) Carbon dioxide, total [Moles/volume] in Serum or Plasma 27 meq/L 21 -32 [facility] ([facility]) Calcium [Mass/volume] in Serum or Plasma 9.0 mg/dL 8.5-10.1 [facility] ([facility]) Total Bilirubin 1.8 mg/dL 0.2-1.0 [facility] ([facility]) NOTE: RESULT VERIFIED. Alkaline phosphatase isoenzyme [Units/volume] in Serum or Pl asma 70 mg/dL 46-116 [facility] ([facility]) Aspartate aminotransferase [Enzymatic activity/volume] in Serum or Plasma 17 U/L 15-37 [facility] ([facility] ) Albumin [Mass/volume] in Serum or Plasma 4.2 g/dL 3.4-5.0 [facility] ([facility]) Alanine aminotransferase [Enzymatic activity/volume] in Seru m or Plasma 26 U/L 12-78 [facility] ([facility]) Glomerular filtration rate/1.73 sq M pre dicted among non-blacks [Volume Rate/Area] in Serum or Plasma by Creatinine-based formula (MDRD) 54 mL/min [facility] [facility]) A/G Ratio 1.62 CALC 1.00-1.90 [facility] ([facility] Proteinase 3 Ab [Units/volume] in Serum 6.8 g/dL 6.4-8.2 [facility] ([facility] Glomerular filtration rate/1.73 sq M pre dicted among blacks [Volume Rate/Area] in Serum or Plasma by Creatinine-based formula (MDRD) Laboratory test result [facility] ([facility]) <content>CHRONIC KIDNEY DISEASE STAGING PER NKF</content>
<content></content>
<content>STAGE I & II GFR >= 60 NORMAL TO MILDLY DECREASED</content>
<content>STAGE III GFR 30-59 MODERATELY DECREASED</content>
<content>STAGE IV GFR 15-29 SEVERELY DECREASED</content>
<content>STAGE V GFR <15 VERY LITTLE GFR LEFT</content>
<content>ESRD GFR <15 ON OUTREACH ANALYST</content>
<content></content> ID Date Data Source [id number] 11/13/2020 02:59:00 PM EDT [facility] ([facility]) Name Value Range Interpretation Code Description Data Mary rce(s) Supporting Document(s) Leukocytes [#/volume] in Blood by Automated count 6.4 x10*3/UL 4.1-10 .9 [facility] ([facility]) Erythrocytes [#/volume] in Blood by Automated count 4.29 x10*6/UL 4.2 0-6.30 [facility] ([facility]) MCV 86.5 fL 80.0-97.0 [facility] Hemoglobin [Mass/volume] in Blood 12.9 g/dL 12.0-18.0 [facility] ([facility]) Hematocrit [Volume Fraction] of Blood by Automated count 37.1 % 3 7.0-51.0 [facility] ([facility]) MCH 30.0 pg 26.0-32.0 [facility]) MCHC 34.7 g/dL 31.0-38.0 [facility] ([facility]) Platelets [#/volume] in Blood by Automated count 255 x10*3/UL 140-440 [facility] ([facility]) Erythrocyte distribution width [Ratio] by Automated count 13.3 % 11.6-13.7 [facility] ([facility]) Lymph % 20.4 % 10.0-58.5 [facility] ([facility]) MPV 8.4 FL 7.8-11.0 [facility]) Neut % 73.4 % 37.0-92.0 [facility] Mid % 6.2 % 1.7-9.3 [facility] Lymph # 1.3 x10*3/UL 0.6-4.1 [facility] ([facility]) Mid # 0.4 x10*3/UL 0.1-0.6 [facility] ([facility]) Neut # 4.7 x10*3/UL 2.0-7.8 [facility] ([facility]) ID Date Data Source [id number] 09/30/2020 09:30:00 AM EDT [facility] ([facility]) Name Value Range Interpretation Code Description Data Mary rce(s) Supporting Document(s) Urine Color Laboratory test result [facility] ([facility]) Urine PH 6.5 units 5.0-9.0 [facility]) Urine Appearance Laboratory test result [facility] ([facility]) Specific gravity of Urine 1.015 1.005-1.030 CT [facility] ([facility]) Urine Leukocytes Laboratory test result Abnormal (applies to non-numeric results) [facility] ([facility] Urine Protein Laboratory test result 0-0 [facility] ([facility]) Urine Blood Laboratory test result [facility] ([facility]) Urine Nitrite Laboratory test result [facility] ([facility]) Glucose [Presence] in Urine Laboratory test result [facility] ([facility]) Urine Ketone Laboratory test result [facility] ([facility]) Bilirubin.total [Mass/volume] in Serum or Plasma Laboratory test resu lt [facility] ([facility]) Urine Urobilinogen 0.2 mg/dL 0.2-1.0 [facility] ([facility]) ID Date Data Source [id number] 09/25/2020 02:53:00 PM EDT [facility] ([facility]) Name Value Range Interpretation Code Description Data Mary rce(s) Supporting Document(s) Erythrocytes [#/volume] in Blood by Automated count 4.57 x10*6/UL 4.2 0-6.30 [facility] ([facility]) Hemoglobin [Mass/volume] in Blood 13.9 g/dL 12.0-18.0 [facility] ([facility]) Leukocytes [#/volume] in Blood by Automated count 6.0 x10*3/UL 4.1-10 .9 [facility] ([facility]) Hematocrit [Volume Fraction] of Blood by Automated count 39.7 % 3 7.0-51.0 [facility] ([facility]) MCV 86.7 fL 80.0-97.0 [facility]) Erythrocyte distribution width [Ratio] by Automated count 13.0 % 11.6-13.7 [facility] ([facility]) MCHC 35.0 g/dL 31.0-38.0 [facility] ([facility]) MCH 30.4 pg 26.0-32.0 [facility] ([facility]) Platelets [#/volume] in Blood by Automated count 274 x10*3/UL 140-440 [facility] ([facility]) MPV 8.3 FL 7.8-11.0 [facility] ([facility]) Lymph % 17.8 % 10.0-58.5 [facility] ([facility]) Mid % 5.4 % 1.7-9.3 [facility]) Neut % 76.8 % 37.0-92.0 [facility] Lymph # 1.0 x10*3/UL 0.6-4.1 [facility] ([facility]) Neut # 4.6 x10*3/UL 2.0-7.8 [facility] ([facility]) Mid # 0.4 x10*3/UL 0.1-0.6 [facility] ([facility]) Procedure Social History Code Duration Value Status Description Data Source(s ) Smoking 04/04/2021 12:00:00 AM EDT Never Smoker completed Never [facility] ([facility]) Vital Signs ID Date Data Source UNK Name Value Range Interpretation Code Description Data Source(s) Body weight 133.6 [lb_av] 133.6 [lb_av] eCW1 ([facility]) Body weight 60.6 kg 60.6 kg eCW1 ([facility]) Body height [in_i] eCW1 ([facility]) Body mass index (BMI) [Ratio] 22.58 kg/m2 22.58 kg/m2 eCW1 ([facility]) Systolic blood pressure 130 mm[Hg] 130 mm[Hg] e CW1 ([facility]) Diastolic blood pressure 70 mm[Hg] 70 mm[Hg] eCW1 ([facility]) Body height 65.5 [in_i] 65.5 [in_i] [facility] 5'5.50" Body weight 130.00 [lb_av] 130.00 [lb_av] [facility] T ([facility]) Systolic blood pressure 125 mm[Hg] 125 mm[Hg] M EDENT ([facility]) Diastolic blood pressure 69 mm[Hg] 69 mm[Hg] [facility] ([facility]) Heart rate 73 /min 73 /min [facility] Body mass index (BMI) [Ratio] 21.3 kg/m2 21.3 k g/m2 [facility] ([facility]) Body weight 58.968 kg 58.968 kg [facility] Body temperature 90.7 [degF] 90.7 [degF] [facility] ([facility]) Body weight 129.00 [lb_av] 129.00 [lb_av] [facility] T ([facility]) Body height 65 [in_i] 65 [in_i] [facility] ([facility]) 5'5" Body mass index (BMI) [Ratio] 21.5 kg/m2 21.5 k g/m2 [facility] ([facility]) Systolic blood pressure 130 mm[Hg] 130 mm[Hg] M EDENT ([facility]) Diastolic blood pressure 82 mm[Hg] 82 mm[Hg] [facility] ([facility]) Body weight 129.00 [lb_av] 129.00 [lb_av] [facility] ([facility]) Body height 65 [in_i] 65 [in_i] [facility] ([facility]) 5'5" Body mass index (BMI) [Ratio] 21.5 kg/m2 21.5 k g/m2 [facility] ([facility]) Body weight 131.00 [lb_av] 131.00 [lb_av] [facility] ([facility]) Body height 65 [in_i] 65 [in_i] [facility] ([facility]) 5'5" Body mass index (BMI) [Ratio] 21.8 kg/m2 21.8 k g/m2 [facility] ([facility]) Systolic blood pressure 126 mm[Hg] 126 mm[Hg] M EDENT ([facility]) Diastolic blood pressure 72 mm[Hg] 72 mm[Hg] [facility] ([facility]) Body weight 131.00 [lb_av] 131.00 [lb_av] [facility] T ([facility]) Body height 65 [in_i] 65 [in_i] [facility] ([facility]) 5'5" Body mass index (BMI) [Ratio] 21.8 kg/m2 21.8 k g/m2 [facility] ([facility]) Systolic blood pressure 118 mm[Hg] 118 mm[Hg] ED[facility] ([facility]) Diastolic blood pressure 66 mm[Hg] 66 mm[Hg] [facility] ([facility]) Body weight 135.00 [lb_av] 135.00 [lb_av] [facility] T ([facility]) Respiratory rate 18 /min 18 /min [facility] ( [facility]) Heart rate 72 /min 72 /min [facility] ([facility]) Body height 65.25 [in_i] 65.25 [in_i] [facility] 5'5.25" Body weight 135.00 [lb_av] 135.00 [lb_av] [facility] T ([facility]) Oxygen saturation in Arterial blood by Pulse oximetry 97 % 97 % [facility] ([facility]) Body mass index (BMI) [Ratio] 22.3 kg/m2 22.3 k g/m2 [facility] ([facility]) Body height 65.25 [in_i] 65.25 [in_i] [facility] 5'5.25" Body weight 136.00 [lb_av] 136.00 [lb_av] [facility] T ([facility]) Body mass index (BMI) [Ratio] 22.5 kg/m2 22.5 k g/m2 [facility] ([facility]) Systolic blood pressure 128 mm[Hg] 128 mm[Hg] M EDENT ([facility]) Diastolic blood pressure 70 mm[Hg] 70 mm[Hg] [facility] ([facility]) Heart rate 68 /min 68 /min [facility] ([facility]) Systolic blood pressure 120 mm[Hg] 120 mm[facility]Hg] [facility] Diastolic blood pressure 70 mm[Hg] 70 mm[Hg] [facility] ([facility]) Body height 65.25 [in_i] 65.25 [in_i] [facility] ( [facility] 5'5.25" Body weight 137.00 [lb_av] 137.00 [lb_av] [facility] ([facility]) Body mass index (BMI) [Ratio] 22.6 kg/m2 22.6 k g/m2 [facility] ([facility]) Heart rate 90 /min 90 /min [facility] ([facility])
--- OUTSIDE RECORDS SUMMARY | 2021-04-14 06:51 | CCD | Continuity of Care Document ---
Author Author Susannah GRIMES Organization Unknown Address [address] [place] [address] Phone [phone] Care Team Providers Care Jewel Hole Finish Opener Name Role Phone Joshua Finley M.D. AUTM [phone] Problems Description No Information Available Social History [...] bed Allergies, Adverse Reactions, Alerts Active Allergies Criticality Reaction | Severity Comments Date Topamax Unable to assess criticality 06/27/2015 Medications Active Medications SIG Qnty Indications Ordering Provide r Date Cephalexin 500mg Capsules 1 by mouth twice a day x 7 days 14caps ANGELIA Ferrer 2020 Urea 40% Cream a pply to the feet every day 198gm L85.3 ANGELIA Dawn 06/14 Pravastatin Sodium Unknown Verapamil HCL Unknown Maxalt Unknown Omeprazole Unknown Calcium 600 + D Unknown 0 Vitamin D3 Unknown Levothyroxine Sodium Unknown Famciclovir Unknown Immunizations Description No Information Available Vital Signs Date Vital Result Comment 02/04/2021 10:23am BP Systolic 130 mmHg BP Diastolic 82 mmHg Weight 129.00 lb Height 65 inches 5'5" BMI (Body Mass Index) 21.5 kg/m2 01/21/2021 3:07pm BP Systolic 126 mmHg BP Diastolic 72 mmHg Weight 131.00 lb Height 65 inches 5'5" BMI (Body Mass Index) 21.8 kg/m2 Results Test Acquired Date Facility Test Result H/L Range Note Anaerobic Culture 01/21/2021 [facility] Anaerobic Culture Final report Abnormal 1 Result 1 See Comment: 2 Result 2 See Comment: Abnormal 3 Laboratory test finding 01/21/2021 [facility] PDF [id number] SEE IMAGE BXDX Pathology 12/17/2020 [facility] LC Icd9 Code ICD9 Code: C44.7 <SEE NOTE> 4, 5 PDFReport SEE IMAGE 1 Source of Specimen: R body trimmer ior leg 2 Source of Specimen: R body trimmer ior leg No anaerobic growth in 72 hours. 3 Source of Specimen: R body trimmer ior leg Aerobic bacteria have been isolated. For further identification and susceptibility testing, please contact the lab within one week. [address] Gonzalez for exc ision/[place] letter awaiting signature LW 01/23/21 letter sent, awaiting appt LW 01/27/21 awaiting Webmail fix to send photo LW 01/27/21 photo emailed, appt 04/02/21, pt is aware LW 02/04/21 5 ICD9 Code: C44.722 Protocol: shave Clinical Text: [...] to the bottom of the sections. CPT: 25522*1 Procedures Date Code Description Status 02/04/2021 55046 Office/Outpatient Established Mo d MDM 30-39 Min Completed 01/21/2021 23349 Office/Outpatient Established Mo d MDM 30-39 Min Completed 12/17/2020 39947 Office/Outpatient Established Mo d MDM 30-39 Min Completed 12/17/2020 85702 Shave Biopsy Of Skin, Single Les ion Completed Medical Devices Description No Information Available Encounters Type Date Location Provider Dx Diagnosis Office Visit 02/04/2021 10:30a Main Office ANGELIA Ferrer C44.722 Squamous cell carcinoma skin/ right lower limb, inc hip Office Visit 01/21/2021 2:45p Main Office ANGELIA [...] malignant neoplasm Assessments Date Code Description Provider 02/04/2021 C44.722 Squamous cell carcin nelly of skin of right lower limb, including hip ANGELIA Ferrer 01/21/2021 C44.722 Squamous cell carcin nelly of [...] am - ANGELIA Schaefer at Main Office 02/04/2021 - ANGELIA Ferrer* 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 Discussed to leave site open to air and allow to heal.Will contact Dr. Gonzalez regarding excision appointment.Call with any problems. * Follow up:* Has appointment - 07/07/2021 Functional Status Description No Information Available Mental Status Description No Information Available Referrals Description No Information Available
--- OUTSIDE RECORDS SUMMARY | 2021-04-14 06:51 | CCD | Continuity of Care Document ---
Author Author Susannah MARIN M.D. Organization Unknown Address [address] [place] [address] Phone [phone] Care Team Providers Care Stamp Press Operator Name Role Phone Joshua Finley M.D. AUTM [phone] Problems Active Problems Provider Date Gastroesophageal reflux disease Emmanuel Marin M.D. Ons et: 02/13/2021 Screening for malignant neoplasm of colon Emmanuel mg M.D. Onset: 04/22/2012 Abdominal pain Emmanuel Marin M.D. Onset: 04/28/20 12 Diverticular disease of colon Emmanuel Marin M.D. Onset : 04/28/2012 Social History Type Date Description Comments Sex Unknown ETOH Use Occasionally Tobacco Use Start: Unknown End: Unknown Patient is a former smoker 1989 Allergies, Adverse Reactions, Alerts Active Allergies Criticality Reaction | Severity Comments Date Topamax Unable to assess criticality 04/14/2012 Medications Active Medications SIG Qnty Indications Ordering Provide r Date Pravastatin Sodium 40mg Tablets Unknown Omeprazole 20mg Capsules DR Take 1 Capsule By Mouth Twice Daily Shahida Matt,DO Levothyroxine Sodium 25mcg Tablets Take 1 Tablet By Mouth Every Day Joshua Finley M.D. Famciclovir 250mg Tablets Take 1 Tablet By Mouth Twice Daily Joshua Finley M.D. 000 Zolpidem Tartrate 5mg Tablets Joshua Finley M.D. D3 + K2 Dots [id number] Tablets Unknown Calcium 600mg Tablets Unknown Maxalt 10mg Tablets Unknown Proactozyme Unknown Powdered Slippery Elm Bark Unknown Immunizations Description No Information Available Vital Signs Date Vital Result Comment 02/13/2021 4:26pm Height 65.5 inches 5'5.50" Weight 130.00 lb BP Systolic 125 mmHg BP Diastolic 69 mmHg Heart Rate 73 /min BMI (Body Mass Index) 21.3 kg/m2 Weight 58.968 kg Body Temperature 90.7 F 03/15/2014 3:27pm Height 65.5 inches 5'5.50" Weight 136.00 lb BP Systolic 110 mmHg BP Diastolic 68 mmHg Heart Rate 66 /min BMI (Body Mass Index) 22.3 kg/m2 Weight 61.690 kg Results Description No Information Available Procedures Date Code Description Status 02/13/2021 21596 Office/Outpatient New Low MDM 30 -44 Minutes Completed Medical Devices Description No Information Available Encounters Type Date Location Provider Dx Diagnosis Office Visit 02/13/2021 3:45p Main Office Emmanuel Marin M.D. K 21.9 Gastro-esophageal reflux disease without esophagitis Assessments Date Code Description Provider 02/13/2021 K21.9 Gastroesophageal reflux disease Emmanuel Marin M.D. Plan of Treatment Future Appointment(s):* 04/14/2021 11:15 am - Emmanuel Marin M.D. at Main Office 02/13/2021 - Emmanuel Marin M.D.* K21.9 Gastroesophageal reflux disease* Comments:* 75 yo wf who presents for a recent flare of her heartburn since December. Her symptoms are improved. On omeprazole 20 mgs po bid. She is also using liquid gaviscon. No c/o abdominal pain, weight loss, change in bowel habits, or rectal bleeding. No family h/o colon cancer. No h/o chest pain, or sob. Plan:1. Egd + biopsies.2. Maintain meds.3. Colonoscopy as needed for symptoms only. Last normal colon in 2013. Functional Status Description No Information Available Mental Status Description No Information Available Referrals Description No Information Available
--- OUTSIDE RECORDS SUMMARY | 2021-04-14 06:51 | CCD | Continuity of Care Document ---
Author Author Susannah [facility] Organization Unknown Address [address] [place] [address] Phone [phone] Care Team Providers Care Stadium Attendant Name Role Phone Joshua Finley M.D. AUTM [phone] Problems Description No Information Available Social History [...] 3 Laboratory test finding 01/21/2021 [facility] PDF [id number] SEE IMAGE BXDX Pathology 12/17/2020 [facility] LC Icd9 Code ICD9 Code: C44.7 <SEE NOTE> 4, 5 PDFReport SEE IMAGE 1 Source of Specimen: R blockman ior leg 2 Source of Specimen: R blockman ior leg No anaerobic growth in 72 hours. 3 Source of Specimen: R blockman ior leg Aerobic bacteria have been isolated. [...] to the bottom of the sections. CPT: 46303*1 Procedures Date Code Description Status 01/21/2021 98356 Office/Outpatient Established Mo d MDM 30-39 Min Completed 12/17/2020 26707 Office/Outpatient Established Mo d MDM 30-39 Min Completed 12/17/2020 84424 Shave Biopsy Of Skin, Single Les ion [...]
--- OUTSIDE RECORDS SUMMARY | 2021-04-14 06:51 | CCD | Continuity of Care Document ---
Author Author Susannah GRIMES Organization Unknown Address [address] [place] [address] Phone [phone] Care Team Providers Care Drafter Topographical Name Role Phone Joshua Finley M.D. AUTM [phone] Problems Description No Information Available Social History [...] 3 Laboratory test finding 01/21/2021 [facility] PDF [id number] SEE IMAGE BXDX Pathology 12/17/2020 [facility] LC Icd9 Code ICD9 Code: C44.7 <SEE NOTE> 4, 5 PDFReport SEE IMAGE 1 Source of Specimen: R computer support specialist ior leg 2 Source of Specimen: R computer support specialist ior leg No anaerobic growth in 72 hours. 3 Source of Specimen: R computer support specialist ior leg Aerobic bacteria have been isolated. [...] to the bottom of the sections. CPT: 82078*1 Procedures Date Code Description Status 02/04/2021 80705 Office/Outpatient Established Mo d MDM 30-39 Min Completed 01/21/2021 32845 Office/Outpatient Established Mo d MDM 30-39 Min Completed 12/17/2020 53924 Office/Outpatient Established Mo d MDM 30-39 Min Completed 12/17/2020 73293 Shave Biopsy Of Skin, Single Les ion [...]
[2021-04-14] MEDS ORDERED: propofoL 200 MG/20 ML VIAL As Ordered ONE (07:07)
[2021-04-14] MEDS ORDERED: LIDOCAINE 2% 100MG/5ML SDV (FOR ANES.) As Ordered ONE (07:07)
--- NOTE | 2021-04-14 07:48 | ROOR ---
Patient Name: Susannah Márquez Procedure Date: 04/14/2021 7:31 AM Date of : 1945 Age: 75 Room: [facility] Gender: Female Note Status: Finalized Procedure: Upper Endoscopy + Biopsies Indications: Heartburn, Exclusion of Neely's esophagus Providers: Emmanuel Marin MD Referring MD: OLEGARIO BRITO JR, MD Requesting Provider: Medicines: Monitored Anesthesia Care Complications: No immediate complications. Procedure: Pre-Anesthesia Assessment: - The heart rate, respiratory rate, oxygen saturations, blood pressure, adequacy of pulmonary ventilation, and response to care were monitored throughout the procedure. The Endoscope was introduced through the mouth, and advanced to the second part of duodenum. The upper GI endoscopy was accomplished without difficulty. The patient tolerated the procedure well. Findings: The Z-line was variable and was found 40 cm from the incisors. Multiple biopsies were obtained with cold forceps for evaluation to rule out Neely's Esophagus randomly at the gastroesophageal junction. A small hiatal hernia was present. No other significant abnormalities were identified in a careful examination of the stomach. The exam of the duodenum was otherwise normal. Impression: - Z-line variable, 40 cm from the incisors. - Small hiatal hernia. - Multiple biopsies were obtained at the gastroesophageal junction. - The examination was otherwise normal. Recommendation: - Patient has a contact number available for emergencies. The signs and symptoms of potential delayed complications were discussed with the patient. Return to normal activities tomorrow. Written discharge instructions were provided to the patient. - Resume previous diet. - Discharge patient to home. - Follow an antireflux regimen. - Continue present medications. - Await pathology results. - Telephone GI clinic for pathology results in 1 week. - Return to referring physician. - Repeat upper endoscopy in 3 years for surveillance based on pathology results. - The findings and recommendations were discussed with the patient. Procedure Code(s): --- Professional --- 43717, Esophagogastroduodenoscopy, flexible, transoral; with biopsy, single or multiple Diagnosis Code(s): --- Professional --- K22.8, Other specified diseases of esophagus K44.9, Diaphragmatic hernia without obstruction or gangrene R12, Heartburn CPT copyright 2019 [employer]. All rights reserved. The codes documented in this report are preliminary and upon clinical mental health counselor review may be revised to meet current compliance requirements. Emmanuel Marin MD Emmanuel Marin MD 04/14/2021 7:48:07 AM Electronically signed by Emmanuel Marin MD Number of Addenda: 0 Note Initiated On: 04/14/2021 7:31 AM Estimated Blood Loss: Estimated blood loss: none.
[2021-04-14 08:10] VITALS: BP 120/60
== END 2021-04-14 09:00 | disposition home or self-care (01) ==
LOC: M OPP 06:47
PROVIDERS: ATTEND Internal Medicine Gastroenterology
DX: K22.89 Other specified disease of esophagus (principal); K44.9 Diaphragmatic hernia without obstruction or gangrene; R12 Heartburn; Z87.891 Personal history of nicotine dependence; Z88.8 Allergy status to other drugs, medicaments and biological substances

== ENCOUNTER → 2021-07-14 | Outpatient (CLI) | payer MEDICARE ==
[~2021-07-14] MED LIST changes: -NS 1,000 ML IV ONE
== END ==
LOC: M WHC 14:04
PROVIDERS: ATTEND Internal Medicine
DX: M85.851 Other specified disorders of bone density and structure, right thigh (principal)

== ENCOUNTER → 2022-01-12 | Outpatient (CLI) | payer MEDICARE | LOC: M RAD 07:45 | PROVIDERS: ATTEND Nurse Practitioner Adult Health | DX: M50.221 Other cervical disc displacement at C4-C5 level (principal); M50.222 Other cervical disc displacement at C5-C6 level; M79.602 Pain in left arm ==

== ENCOUNTER → 2022-02-23 | Outpatient (CLI) | payer MEDICARE ==
[~2022-02-23] MED LIST changes: -MAXA10TA14 PO; +RIZA10TA64 PO
== END ==
LOC: M WHC 09:31
PROVIDERS: ATTEND Internal Medicine
DX: Z12.31 Encounter for screening mammogram for malignant neoplasm of breast (principal)

== ENCOUNTER → 2022-03-31 | Outpatient (CLI) | payer MEDICARE ==
[~2022-03-31] MED LIST changes: +B-12100010 PO; +CALC600T60 PO; -FAMC250T; +FAMC250T PO; -LEVO25TA5; +LEVO25TA5 PO; +OMEP-173 PO; -PRAV40TA2; +PRAV40TA2 PO; +RISE1TAB PO; +TIZA10TA PO; -VERA40TA; +VERA40TA PO; +VITA100093 PO; -ZOLP5TAB; +ZOLP5TAB PO
== END ==
LOC: M LABSMTC 10:16
PROVIDERS: ATTEND Anesthesiology
DX: Z01.818 Encounter for other preprocedural examination (principal); Z11.52 Encounter for screening for COVID-19

== ENCOUNTER → 2022-03-31 | Outpatient (CLI) | payer MEDICARE ==
[2022-03-31 11:55] LABS: EOS # 0.1 10^3/uL (0.0-0.5); EOS % 1.1 % (0.0-3.0); HEMATOCRIT 37.8 % (36.0-47.0); HEMOGLOBIN 12.6 g/dl (12.0-15.5); LYMPH # 0.6 10^3/uL (1.5-5.0); LYMPH % 13.4 % (24.0-44.0); MEAN CORPUSCULAR HEMOGLOBIN 30.4 pg (27.0-33.0); MEAN CORPUSCULAR HGB CONC 33.3 g/dl (32.0-36.5); MEAN CORPUSCULAR VOLUME 91.3 fl (80.0-96.0); MONO # 0.4 10^3/uL (0.0-0.8); NEUTROPHILS # 3.7 10^3/uL (1.5-8.5); NEUTROPHILS % 77.3 % (36.0-66.0); PLATELET COUNT, AUTOMATED 235 10^3/uL (150-450); RED BLOOD COUNT 4.14 10^6/uL (4.00-5.40); WHITE BLOOD COUNT 4.8 10^3/uL (4.0-10.0)
[2022-03-31 12:29] LABS: ALT/SGPT 22 U/L (12-78); BILIRUBIN,TOTAL 1.8 MG/DL (0.2-1.0); BLOOD UREA NITROGEN 15 MG/DL (7-18); CALCIUM LEVEL 8.7 MG/DL (8.8-10.2); CARBON DIOXIDE LEVEL 28 MEQ/L (21-32); CHLORIDE LEVEL 101 MEQ/L (98-107); CREATININE FOR GFR 0.96 MG/DL (0.55-1.30); GLOMERULAR FILTRATION RATE > 60.0 (>39); GLUCOSE, FASTING 99 MG/DL (70-100); POTASSIUM SERUM 4.3 MEQ/L (3.5-5.1); SODIUM LEVEL 134 MEQ/L (136-145); TOTAL PROTEIN 6.5 GM/DL (6.4-8.2)
== END ==
LOC: M RAD 10:39
PROVIDERS: ATTEND Podiatrist
DX: M20.12 Hallux valgus (acquired), left foot (principal); M79.672 Pain in left foot

== ENCOUNTER 2022-04-03 09:57 | Day surgery (SDC) | payer MEDICARE ==
[~2022-04-03] VITALS: Ht 165.1 cm; Wt 58.1 kg
[~2022-04-03 09:57] MED LIST changes: +ceFAZolin SOD 2 GM in IV 1 EA IV ONE
[2022-04-03] MEDS ORDERED: MIDAZOLAM INJ 2MG/2ML VIAL (J2250 PER 1MG) As Ordered ONE (12:29)
[2022-04-03] MEDS ORDERED: LIDOCAINE 2% 100MG/5ML SDV (FOR ANES.) As Ordered ONE (12:30)
[2022-04-03] MEDS ORDERED: propofoL 200 MG/20 ML VIAL As Ordered ONE ×2 (12:30→12:33)
[2022-04-03] MEDS ORDERED: fentaNYL 100 MCG/2 ML INJECTION As Ordered ONE (12:30)
[2022-04-03] MEDS ORDERED: ONDANSETRON 4MG 2ML VIAL As Ordered ONE (12:33)
[2022-04-03] MEDS ORDERED: BUPIVACAINE HCL 0.5% 30ML VIAL As Ordered ONE (13:10)
[2022-04-03] MEDS ORDERED: ROPIvacaine 0.5% 30ML INJECTION (J2795 PER 1MG) As Ordered ONE (13:10)
[2022-04-03] MEDS ORDERED: LIDOCAINE 2% MDV 20ML VIAL As Ordered ONE (13:10)
[2022-04-03] MEDS ORDERED: NEOSPORIN GU IRRIG 20 ML VIAL As Ordered ONE (13:11)
[2022-04-03] MEDS ORDERED: dexameTHASONE 4 MG/ML 1ML VIAL (J1100 PER 1MG) As Ordered ONE (13:14)
[2022-04-03] MEDS ORDERED: GENTAMICIN SULF 80MG/2ML VIAL As Ordered ONE (13:16)
[2022-04-03] MEDS ORDERED: ACETAMINOPHEN 1000MG 100ML IV BTL (OFIRMEV) (J0131 PER 10MG) As Ordered ONE (13:38)
[2022-04-03] MEDS ORDERED: PHENYLephrine 500MCG 5ML (100MCG/ML) SYRINGE As Ordered ONE (14:04)
[2022-04-03 15:16] VITALS: BP 130/61
== END 2022-04-03 15:16 | disposition home or self-care (01) ==
LOC: M SDC 09:57
PROVIDERS: ATTEND Podiatrist
DX: M20.12 Hallux valgus (acquired), left foot (principal); M21.6X2 Other acquired deformities of left foot; R25.2 Cramp and spasm; M19.90 Unspecified osteoarthritis, unspecified site; R51.9 Headache, unspecified; J34.89 Other specified disorders of nose and nasal sinuses; Z79.899 Other long term (current) drug therapy; Z79.890 Hormone replacement therapy; Z79.2 Long term (current) use of antibiotics; Z88.8 Allergy status to other drugs, medicaments and biological substances
CPT/HCPCS: 28296; 73630; 88300; C1713; J0131; J0690; J1100; J1580; J2250; J2370; J2405; J2795; J3010

== ENCOUNTER → 2023-03-02 | Outpatient (CLI) | payer MEDICARE ==
[~2023-03-02] MED LIST changes: -ceFAZolin SOD 2 GM in IV 1 EA IV ONE
== END ==
LOC: M WHC 09:29
PROVIDERS: ATTEND Internal Medicine
DX: Z12.31 Encounter for screening mammogram for malignant neoplasm of breast (principal)

== ENCOUNTER → 2023-06-02 | Outpatient (CLI) | payer MEDICARE ==
[~2023-06-02] MED LIST changes: +EUCR2OIN EX; +HYDR2.5C; +K 10100T PO; +LETR2.5T2 PO; +PIME1CRE; +TRAZ1TAB11; +VITA100T14 PO; +ZYRTTAB8 PO
== END ==
LOC: M ONCR 14:06
PROVIDERS: ATTEND General Practice
DX: C50.511 Malignant neoplasm of lower-outer quadrant of right female breast (principal); Z98.890 Other specified postprocedural states; Z71.2 Person consulting for explanation of examination or test findings; Z80.41 Family history of malignant neoplasm of ovary; Z87.891 Personal history of nicotine dependence; Z88.8 Allergy status to other drugs, medicaments and biological substances; Z79.890 Hormone replacement therapy; Z79.899 Other long term (current) drug therapy

== ENCOUNTER → 2023-08-19 | Outpatient (CLI) | payer MEDICARE ==
[~2023-08-19] MED LIST changes: -HYDR2.5C; +HYDR2.5C TOP; -TRAZ1TAB11; +TRAZ1TAB11 PO
== END ==
LOC: M WHC 10:28
PROVIDERS: ATTEND Internal Medicine Medical Oncology
DX: M81.0 Age-related osteoporosis without current pathological fracture (principal)

== ENCOUNTER → 2023-11-11 | Outpatient (CLI) | payer MEDICARE | LOC: M WUC 13:49 | PROVIDERS: ATTEND Nurse Practitioner Family | DX: M25.522 Pain in left elbow (principal) ==

== ENCOUNTER → 2024-05-23 | Outpatient (CLI) | payer MEDICARE | LOC: M WUC 13:36 | PROVIDERS: ATTEND Internal Medicine | DX: M54.50 Low back pain, unspecified (principal) ==

== ENCOUNTER → 2024-07-13 | Outpatient (CLI) | payer MEDICARE | LOC: M RAD 12:56 | PROVIDERS: ATTEND Internal Medicine | DX: K08.89 Other specified disorders of teeth and supporting structures (principal) ==

== ENCOUNTER 2024-07-28 08:18 | Day surgery (SDC) | payer MEDICARE ==
[~2024-07-28] VITALS: Ht 165.1 cm; Wt 57.6 kg
[~2024-07-28 08:18] MED LIST changes: +ALEN70TA82 PO; +LIDOCAINE 2% 100MG/5ML SDV (FOR ANES.) As Ordered ONE; +MAGN64TASA PO; +SYNT25TA PO; +propofoL 200 MG/20 ML VIAL As Ordered ONE
[2024-07-28 10:22] VITALS: TEMP 97.6
[2024-07-28 10:49] VITALS: BP 143/69; O2SAT 97
== END 2024-07-28 10:50 | disposition home or self-care (01) ==
LOC: M OPP 08:18
PROVIDERS: ATTEND Surgery
DX: K44.9 Diaphragmatic hernia without obstruction or gangrene (principal); R12 Heartburn; Z88.8 Allergy status to other drugs, medicaments and biological substances; Z79.899 Other long term (current) drug therapy; E78.5 Hyperlipidemia, unspecified; E03.9 Hypothyroidism, unspecified; K21.9 Gastro-esophageal reflux disease without esophagitis

== ENCOUNTER → 2024-12-22 | Outpatient (CLI) | payer MEDICARE ==
[~2024-12-22] MED LIST changes: +GABA-1172 PO; -LIDOCAINE 2% 100MG/5ML SDV (FOR ANES.) As Ordered ONE; +METH-1164 PO; +OXYC-517 PO; -PRAV40TA2 PO; +PRAV40TA85 PO; -propofoL 200 MG/20 ML VIAL As Ordered ONE
== END ==
LOC: M SOG 07:09
PROVIDERS: ATTEND Orthopaedic Surgery
DX: M25.551 Pain in right hip (principal)

== ENCOUNTER → 2025-02-07 | Outpatient (CLI) | payer MEDICARE ==
[~2025-02-07] MED LIST changes: +SENN-225 PO; -SENO8.6T5 PO; -VITA100T14 PO; +VITA100T69 PO
== END ==
LOC: M SOG 06:49
PROVIDERS: ATTEND Orthopaedic Surgery
DX: M25.551 Pain in right hip (principal); Z98.890 Other specified postprocedural states

== ENCOUNTER → 2025-05-30 | Outpatient (CLI) | payer MEDICARE ==
[~2025-05-30] MED LIST changes: -ZOLP5TAB PO; +ZOLP5TAB9 PO
== END ==
LOC: M SOG 07:42
PROVIDERS: ATTEND Orthopaedic Surgery
DX: S72.001D Fracture of unspecified part of neck of right femur, subsequent encounter for closed fracture with routine healing (principal)